=== PATIENT | female | born 1995 | race Caucasian/White ===

== ENCOUNTER 2018-10-18 23:03 | Observation (INO) | payer BC, MEDICAID ==
[~2018-10-18] VITALS: Ht 170.2 cm; Wt 117.9 kg
== END 2018-10-19 01:10 | disposition home or self-care (01) | DRG 833 ==
LOC: LDRP 23:03
PROVIDERS: ADMIT Specialist; ATTEND Specialist
DX: O62.9 Abnormality of forces of labor, unspecified (principal); Z3A.39 39 weeks gestation of pregnancy
CPT/HCPCS: 59025; 81002; G0378

== ENCOUNTER 2018-10-20 23:37 | Observation (INO) | payer BC, MEDICAID ==
[2018-10-22] MEDS ORDERED: FERR-7 PO (07:34)
[2018-10-22] MEDS ORDERED: PREN-96 PO (07:34)
== END 2018-10-21 02:25 | disposition home or self-care (01) | DRG 833 ==
LOC: LDRP 23:37
PROVIDERS: ADMIT Specialist; ATTEND Specialist
DX: O62.9 Abnormality of forces of labor, unspecified (principal); Z3A.40 40 weeks gestation of pregnancy
CPT/HCPCS: 59025; 81002; G0378

== ENCOUNTER 2018-10-21 09:10 | Inpatient (IN) | payer BC, MEDICAID ==
[~2018-10-21] VITALS: Ht 170.2 cm; Wt 117.9 kg
[2018-10-21] MEDS ORDERED: LACT. RINGERS/OXYTOCIN 20UNITS 1,000 ML IV SCH (09:33)
[2018-10-21] MEDS ORDERED: DERMOPLAST 60ML BOTTLE TOP PRN (09:45)
[2018-10-21] MEDS ORDERED: PROMETHAZINE HCL 25 MG/ML 1ML IV PRN ×2 (09:45→16:15)
[2018-10-21] MEDS ORDERED: PHISODERM TOP SOLN 240ML BTL TOP PRN (09:45)
[2018-10-21] MEDS ORDERED: PENICILLIN G POT 5MIL/D5 50ML 50 ML IV ONE (09:45)
[2018-10-21] MEDS ORDERED: WITCH HAZEL-GLYCERIN PAD TOP PRN (09:45)
[2018-10-21] MEDS ORDERED: LIDOCAINE 2%HCL (LOCAL ANESTH.) INJ 20ML MDV ID PRN (09:45)
[2018-10-21 10:17] LABS: Urine Bacteria NONE SEEN /hpf (None Seen); Urine Blood 1+ /uL (Negative); Urine Mucus FEW (None Seen); Urine Specific Gravity 1.025 (1.001-1.035); Urine WBC 43 /hpf (0 - 5)
[2018-10-21 10:23] LABS: Alcohol, Urine < 3.0 mg/dL (0-5); Amphetamine Screen, Urine NEGATIVE (NEGATIVE); Barbiturate Scree,Urine NEGATIVE (NEGATIVE); Basophils % (auto) 0.2 % (0.0-2.0); Benzodiazephine Screen, Urine NEGATIVE (NEGATIVE); Cannabinoid Screen, Urine NEGATIVE (NEGATIVE); Cocaine Screen, Urine NEGATIVE (NEGATIVE); Eosinophils # (auto) 0.1 uL; Eosinophils % (auto) 0.6 % (0.0-7.0); Lymphocytes # (auto) 2.1 uL; Mean Corpuscular Volume 76.2 fL (80.0-100.0); Opiate Scree,Urine NEGATIVE (NEGATIVE); Phencyclidine Screen, Urine NEGATIVE (NEGATIVE)
[2018-10-21 10:25] LABS: Basophils # (auto) 0 uL; Hematocrit 31.7 % (36.0-46.0); Hemoglobin 10.4 g/dL (12.2-16.2); Lymphocytes % (auto) 10.3 % (10.0-50.0); Mean Corpuscular Hgb Conc. 32.8 g/dL (32.0-36.0); Monocytes # (auto) 1.1 uL; Monocytes % (auto) 5.3 % (0.0-12.0); Neutrophils % (auto) 83.6 % (37.0-80.0); Platelet Count (auto) 267 10^3/uL (140-450); Red Blood Cells 4.17 10^6/uL (4.0-5.20); Red Cell Distribution Width 17.1 % (11.8-14.3); White Blood Cell 20.3 10^3/uL (4.4-10.8)
[2018-10-21 10:36] LABS: Potassium 3.6 mmol/L (3.5-5.1)
[2018-10-21] MEDS: LACTATED RINGER'S 1,000 ML IV SCH ×2 (10:40→17:56)
[2018-10-21] MEDS: NALBUPHINE HCL 10 MG/1ml INJECTION IV PRN ×2 (10:42→16:37)
[2018-10-21 10:43] LABS: Albumin 2.5 g/dL (3.4-5.0); BUN/Creatinine Ratio 8.2; Bilirubin, Total 0.2 mg/dL (0.2-1.0); Calcium 8.5 mg/dL (8.5-10.1); Total Protein 6.7 g/dL (6.4-8.2); Uric Acid 5.5 mg/dL (2.6-6.0)
[2018-10-21 10:44] LABS: INR 1.01 (0.9-1.15); Partial Thromboplastin Time 29.9 sec (23.64-32.05)
[2018-10-21] MEDS ORDERED: NALOXONE HCL 0.4 MG/ML VIAL IV ONE (11:30)
[2018-10-21] MEDS ORDERED: LIDOCAINE HCL 2 %PF INJ 10ML AMP IJ ONE (11:30)
[2018-10-21] MEDS ORDERED: ePHEDrine SULFATE 50 MG/ML AMP IV ONE (11:30)
[2018-10-21] MEDS ORDERED: fentaNYL W ROPIVACAINE 150 ML EPI SCH (11:30)
[2018-10-21] MEDS ORDERED: PENICILLIN G POTASSIUM 2,500,000 UNITS in D5W 5% 50 ML IV SCH ×2 (13:45→16:00)
[2018-10-21] MEDS ORDERED: fentaNYL CITRATE 100 MCG/2 ML VL IV ONE (13:45)
[2018-10-21] MEDS ORDERED: LIDOCAINE 2%HCL (LOCAL ANESTH.) INJ 20ML MDV ONE (17:59)
[2018-10-21] MEDS ORDERED: LIDOCAINE 2%HCL (LOCAL ANESTH.) INJ 20ML MDV ID ONE (18:00)
[2018-10-21] MEDS: IBUPROFEN 600 MG TAB PO PRN (20:41)
[2018-10-21 23:00] VITALS: BP 116/64
[2018-10-22] MEDS: LACTATED RINGER'S 1,000 ML IV SCH ×3 (01:33→17:33)
[2018-10-22] MEDS: IBUPROFEN 600 MG TAB PO PRN ×3 (02:48→22:34)
[2018-10-22 02:55] VITALS: BP 95/60
[2018-10-22 07:26] VITALS: BP 99/50
[2018-10-22] MEDS ORDERED: PREN-96 PO (07:34)
[2018-10-22] MEDS ORDERED: FERR-7 PO (07:34)
[2018-10-22 11:30] VITALS: BP 100/54
[2018-10-22 15:00] VITALS: BP 125/57
[2018-10-22] MEDS ORDERED: TETANUS-DIPTH-ACEL PERTUSSIS 0.5ML SYRG IM ONE (18:00)
[2018-10-22 19:00] VITALS: BP 110/53
[2018-10-22 23:00] VITALS: BP 105/55
[2018-10-23] MEDS: LACTATED RINGER'S 1,000 ML IV SCH ×2 (01:33→05:54)
[2018-10-23 03:00] VITALS: BP 108/52
[2018-10-23] MEDS: IBUPROFEN 600 MG TAB PO PRN (06:58)
[2018-10-23 07:00] VITALS: BP 92/53
[2018-10-24 06:06] LABS: Rubella Antibodies, IgG 3.04 index (Immune >0.99)
== END 2018-10-23 12:35 | disposition home or self-care (01) | DRG 807 ==
LOC: LDRP 09:10 → OBSVTOIN 09:30 → LDRP 09:39
PROVIDERS: ADMIT Specialist; ATTEND Specialist
PROC: 10E0XZZ Delivery of Products of Conception, External Approach (ICD-10-PCS; principal; 2018-10-21)
PROC: 10907ZC Drainage of Amniotic Fluid, Therapeutic from Products of Conception, Via Natural or Artificial Opening (ICD-10-PCS; 2018-10-21)
PROC: 3E033VJ Introduction of Other Hormone into Peripheral Vein, Percutaneous Approach (ICD-10-PCS; 2018-10-21)
PROC: 3E0234Z Introduction of Serum, Toxoid and Vaccine into Muscle, Percutaneous Approach (ICD-10-PCS; 2018-10-22)
DX: O69.81X0 Labor and delivery complicated by cord around neck, without compression, not applicable or unspecified (principal); Z37.0 Single live birth; Z3A.40 40 weeks gestation of pregnancy; Z91.013 Allergy to seafood; Z91.041 Radiographic dye allergy status; Z23 Encounter for immunization
CPT/HCPCS: 36415; 59025; 59409; 80053; 80307; 81001; 81002; 84112; 84550; 85025; 85610; 85730; 86592; 86703; 86762; 86850; 86900; 86901; 87340; 90715; 94762; 96365; 96366; 96374; 96375; G0378; J2540; J2590; J3010; J7060